=== PATIENT | female | born 1975 | race African-American/Black ===

== ENCOUNTER 2018-11-02 19:44 | Emergency (ER) | payer MEDICARE, MEDICAID ==
[~2018-11-02] VITALS: Ht 162.6 cm; Wt 71.0 kg
[2018-11-02 20:26] VITALS: BP 139/79
== END 2018-11-02 22:30 | disposition left against medical advice (07) ==
LOC: ER 19:44
DX: K62.5 Hemorrhage of anus and rectum (principal); Z53.21 Procedure and treatment not carried out due to patient leaving prior to being seen by health care provider

== ENCOUNTER 2024-11-15 18:09 | Emergency (ER) | payer MEDICARE, MEDICAID ==
[~2024-11-15] VITALS: Ht 170.2 cm; Wt 90.0 kg
[2024-11-15 18:13] VITALS: TEMP 36.7; O2SAT 99
[2024-11-15 19:53] LABS: BASOPHILS % 0.9 % (0.0-2.0); EOSINOPHILS % 3.2 % (0.0-5.0); HEMATOCRIT. 42.3 % (36.0-48.0); HEMOGLOBIN. 13.8 g/dL (12.0-16.0); LYMPHOCYTES % 34.0 % (20.0-50.0); MEAN PLATELET VOLUME 8.3 fl (7.4-10.4); MONOCYTES % 13.3 % (2.0-8.0); NEUTROPHILS % 48.6 % (40.0-76.0); PLATELET 248 x1000/uL (130-400); RED BLOOD CELL COUNT 5.03 mill/uL (4.2-5.4); RED CELL DISTRIBUTION WIDTH 13.8 % (11.6-14.6)
[2024-11-15 20:11] LABS: CREATININE 0.9 mg/dL (0.6-1.0)
[2024-11-15 20:12] LABS: UREA NITROGEN BLOOD 10 mg/dL (9-23)
[2024-11-15] MEDS ORDERED: ACETAMINOPHEN 500MG TABLET PO ONE (20:30)
[2024-11-15] MEDS ORDERED: IBUPROFEN 800MG TABLET PO ONE (20:30)
[2024-11-15] MEDS ORDERED: METOCLOPRAMIDE HCL 10MG/2ML VIAL IV ONE (20:30)
[2024-11-15] MEDS ORDERED: SODIUM CHLORIDE 0.9% 1,000 ML IV ONE (20:30)
[2024-11-15] MEDS ORDERED: DIPHENHYDRAMINE 50MG/ML VIAL IV ONE (20:30)
[2024-11-15] MEDS ORDERED: KETOROLAC 15MG/ML VIAL IV ONE (20:30)
[2024-11-15 21:30] LABS: INR 1.0
[2024-11-15 21:34] LABS: CREATININE 0.9 mg/dL (0.6-1.0); UREA NITROGEN BLOOD 8 mg/dL (9-23)
[2024-11-15 21:35] LABS: B-HCG QUANTITATIVE 3 mIU/mL (<6)
[2024-11-15 21:36] LABS: ASPARTATE AMINOTRANSFERASE 20 IU/L (<34); BILIRUBIN DIRECT < 0.1 mg/dL (<=3.0); BILIRUBIN TOTAL 0.2 mg/dL (0.1-1.0); PROTEIN TOTAL 7.9 g/dL (6.0-8.3)
[2024-11-15 23:46] VITALS: BP 142/81; PULSE 72; RESP 18
== END 2024-11-15 23:50 | disposition home or self-care (01) ==
LOC: ER 18:19 → CMPBEDREQ 11-16 07:23
DX: D25.9 Leiomyoma of uterus, unspecified (principal); I10 Essential (primary) hypertension; R51.9 Headache, unspecified; R10.2 Pelvic and perineal pain; F12.90 Cannabis use, unspecified, uncomplicated; Z79.899 Other long term (current) drug therapy; Z98.890 Other specified postprocedural states; Z88.0 Allergy status to penicillin
CPT/HCPCS: 99284; 70450; 76830; 76856; 80076; 80048; 84702; 83690; 85025; 85610; 85730; 86850; 86900; 86901; 36415; J7030